=== PATIENT | female | born 2000 | race African-American/Black ===

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

== ENCOUNTER → 2022-06-12 | Outpatient (CLI) | payer MEDICAID ==
[~2022-06-12] MED LIST: PEG15DRO9 OP; PRD20T PO; VALA10007 PO
--- NOTE | 2022-06-12 12:16 | Diagnostic Imaging Report ---
CLINICAL INDICATION: Patient states she has history of seizures. EXAM: MRI of the brain performed without IV contrast. Sequences include sagittal T1, axial DWI, ADC map, coronal 3D FSPGR with sagittal and axial reformations, axial T1, axial T2, axial FLAIR, axial gradient echo, coronal T2 thin, and coronal FLAIR thin. COMPARISON: None. FINDINGS: BRAIN PARENCHYMA: There is no evidence of acute cerebral infarction, intracranial hemorrhage, or mass seen. There are a few focal areas of subcortical high T2 signal involving the high parasagittal posterior bilateral frontal lobe regions. There are also several minimally prominent perivascular spaces seen in the bilateral parasagittal frontal and parietal regions. Otherwise, the remainder of the brain parenchyma is unremarkable. There is no evidence of cortical dysplasia, vascular malformations, hippocampal sclerosis, or brain parenchyma migrational abnormalities. The brain parenchyma is unremarkable with normal justin/ white matter distinction. The hippocampal structures are symmetric bilaterally. There is no significant architectural distortion, midline shift, or herniation. There is no diffusion restriction signal abnormality. VENTRICLES: Unremarkable with no hydrocephalus. BASAL CISTERNS: Unremarkable. VISUALIZED INTRACRANIAL VESSELS: Unremarkable as visualized. SKULL/ ORBITS: Unremarkable. VISUALIZED SINUSES/ MASTOIDS: Unremarkable. IMPRESSION: 1: There are a few focal areas of high T2 signal white matter changes in the subcortical regions of the high posterior bilateral frontal lobe regions. These areas are nonspecific. There is incidental note of minimally prominent multiple perivascular spaces involving the high bilateral parasagittal frontal and parietal lobe regions. Comparison to prior brain imaging, if available, would help better evaluate for chronicity. Otherwise, follow with MRI of the brain in 3 months to evaluate for stability is suggested. 2: Otherwise, unremarkable MRI of the brain with no evidence of cortical dysplasia, vascular malformations, hippocampal sclerosis, or brain parenchyma migrational abnormalities. Dictated by: Dictated on workstation # [id number]
== END ==
LOC: RAD 09:08
PROVIDERS: ATTEND Nurse Practitioner Family
DX: R90.82 White matter disease, unspecified (principal); R56.9 Unspecified convulsions
CPT/HCPCS: 70551

== ENCOUNTER → 2022-07-09 | Outpatient (CLI) | payer MEDICAID ==
--- NOTE | 2022-07-09 19:20 | Diagnostic Imaging Report ---
INDICATION: PAIN COMPARISON: None. FINDINGS: 3 views of the left knee joint demonstrate no acute fracture or dislocation. No focal osseous lesions are seen. There does appear to be patellar joint effusion. The surrounding soft tissue structures are unremarkable. There are no radiopaque foreign bodies. IMPRESSION: 1. Probable suprapatellar joint effusion, but no radiographic evidence of acute fracture or dislocation of the left knee. Dictated by: Dictated on workstation # [id number]
== END ==
LOC: RAD 18:49
PROVIDERS: ATTEND Nurse Practitioner Community Health
DX: M25.562 Pain in left knee (principal)
CPT/HCPCS: 73562

== ENCOUNTER → 2022-09-11 | Outpatient (CLI) | payer MEDICAID ==
[~2022-09-11] MED LIST changes: +GADOTERATE 0.5 MMOL/ML (CLARISCAN) 15 ML VIAL IV ONE
--- NOTE | 2022-09-11 12:30 | Diagnostic Imaging Report ---
PROCEDURE: MR imaging of the brain with and without contrast. Indication: Seizure Comparison: Brain MRI 06/12/2022. Technique: Multiplanar multisequence MRI of the brain was performed with and without intravenous contrast using the seizure protocol. Findings: Decreased T2/FLAIR hyperintense foci in the subcortical white matter involving the parasagittal gyri with a single remaining lesion remaining in the right frontal lobe (image 11 series 10) measuring 5 mm. No acute infarct. No acute or chronic hemorrhage. The ventricles are normal in size and configuration without hydrocephalus. Normal corpus callosum. No abnormal enhancement. The scalp and calvarium are normal. The pituitary and sella are normal. No Chiari malformation. The visualized upper cervical spine is normal. The visualized orbits and globes are normal. The visualized paranasal sinuses are clear. The mastoid air cells are clear. Normal flow voids within the vertebral, basilar, and internal carotid arteries indicating patency. IMPRESSION: Decreased T2/FLAIR hyperintense foci in the subcortical white matter involving the parasagittal gyri with a single remaining lesion remaining in the right frontal lobe (image 11 series 10) measuring 5 mm. 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 Continued clinical and imaging surveillance is recommended. Dictated by: Dictated on workstation # [id number]
== END ==
LOC: RAD 09:03
PROVIDERS: ATTEND Nurse Practitioner
DX: R56.9 Unspecified convulsions (principal)
CPT/HCPCS: 70553

== ENCOUNTER 2022-09-24 10:40 | Outpatient (RCR) | payer MEDICAID ==
[~2022-09-24 10:40] MED LIST changes: -GADOTERATE 0.5 MMOL/ML (CLARISCAN) 15 ML VIAL IV ONE
== END 2022-10-04 | disposition home or self-care (01) ==
PROVIDERS: ATTEND Nurse Practitioner
DX: M25.362 Other instability, left knee (principal)

== ENCOUNTER 2022-10-15 12:55 | Outpatient (RCR) | payer MEDICAID | END 2022-10-15 14:20 | disposition home or self-care (01) | PROVIDERS: ATTEND Nurse Practitioner | DX: M25.362 Other instability, left knee (principal) ==